=== PATIENT | female | born 2000 | race Caucasian/White ===

== ENCOUNTER 2025-05-23 20:38 | Emergency (ER) | payer MEDICAID ==
[~2025-05-23] VITALS: Ht 160 cm; Wt 73.1 kg
[2025-05-23 20:48] VITALS: TEMP 98.5
--- NOTE | 2025-05-24 01:19 | Physician Documentation ---
History of Present Illness ~ Chief Complaint: Vaginal Bleeding Stated Complaint: COMPLICATIONS Time Seen by MD: 01:15 OK to notify your PCP?: Yes Source: patient, RN/MD, RN notes reviewed, old records Mode of Arrival: POV Exam Limitations: no limitations HPI 24 year old female presents to the emergency department for complaints of complications that began today at 1800. Patient states that she began bleeding with heavy cramping. Since her symptoms began she has gone through three pads. She notes that upon her arrival she noticed a gush into her pad. She also has been having intense back pain that she describes as back labor. She states that she is . Medication Reconciliation Allergies: Coded Allergies: No Known Allergies (Unverified , 05/23/25) Past Medical History Past Medical History: No Pertinent History Past Surgical History: Smoking Status: Never smoker Alcohol Use: None Drug Use: none Review of Systems All Other Systems at this time: Reviewed and Negative ROS As stated above in the HPI, otherwise all systems are reviewed and negative. Physical Exam Vital Signs: RN Vital Signs have been reviewed: Yes, Temperature: 98.5, Source: Temporal, Heart Rate: 86, Respiratory Rate: 16, BP: 111/68, Pulse Oximetry: 100, Weight: 73.100 Oxygen Flow Rate: 0 Pulse Oximetry Reflects: adequate oxygenation Physical Exam General: The patient is well developed, well nourished, nontoxic appearing and is in no acute distress. Skin: [place], warm and dry with no rashes. HEENT: Head was normocephalic and atraumatic. Eyes - pupils equal, round, reactive to light and accommodation. Extraocular movements were intact. Conjunctivae were nonicteric. Ears - bilateral tympanic membranes were normal. The mouth and oropharynx were clear with moist mucous membranes. There were no pharyngeal exudates or erythema. Neck: Supple and nontender. There was no jugular venous distention, lymphadenopathy, thyromegaly or masses. Chest: Clear to auscultation bilaterally without wheezes, rales or rhonchi. No accessory muscle use. No dullness to percussion. Heart: Rate regular and rhythmic. S1, S2. No murmurs. Palpation of the chest wall was normal. No rubs or thrills. Abdomen: Soft, nontender and nondistended. Increased bowel sounds. No guarding or rebound. No hepatosplenomegaly or palpable masses. Extremities: No cyanosis, clubbing or edema. The patient moves all extremities. Pulses were equal and symmetric. Neurologic: Cranial nerves II-XII were intact. Sensation was intact to light touch throughout. Motor strength was 5/5 in all four extremities. Deep tendon reflexes were intact in both upper and lower extremities. Psychologic: The patient was oriented to person, place and time. The patient demonstrated appropriate judgement and insight. Vaginal exam differed. Progress Results/Orders Reviewed/noted all lab results: Yes Results/Orders Orders - VICK CARTER MD US OB (05/24/25 01:17) Completed Orders - VICK CARTER MD Cbc/Diff (05/24/25 01:16) Hcg Serum Qt (05/24/25 01:16) BMP (05/24/25 01:16) US OB (05/24/25 01:17) Abo/Rh (05/24/25 01:18) Naproxen Tablet (Naprosyn Tablet) (05/24/25 01:30) Hydrocodone/Apap 10/325 ([place] 10/325mg (05/24/25 01:30) Medications Received in ER Medications (Trade) Dose Ordered Sig/Sophia Route PRN Reason Start Time Stop Time Status Last Admin Dose Admin (Naprosyn tablet) 500 mg ONCE ONCE PO 05/24/25 01:30 05/24/25 01:31 DC 05/24/25 01:36 500 MG ([place] 10/325mg tab) 1 tab ONCE ONCE PO 05/24/25 01:30 05/24/25 01:31 DC 05/24/25 01:36 1 TAB Vital Signs 05/23/25 05/23/25 05/24/25 05/24/25 20:48 23:27 00:30 00:32 Temp 98.5 Pulse 91 87 86 Resp 16 16 16 B/P (MAP) 111/69 111/72 (85) 111/68 (82) Pulse Ox 97 97 100 O2 Flow Rate 0 0 05/24/25 05/24/25 01:30 03:06 Pulse 94 78 Resp 16 16 B/P (MAP) 118/73 (88) 122/98 Pulse Ox 99 99 Laboratory Tests Test 05/24/25 01:31 White Blood Count 8.2 Red Blood Count 3.60 L Hemoglobin 10.7 L Hematocrit 30.9 L Mean Corpuscular Volume 85.8 Mean Corpuscular Hemoglobin 29.8 Mean Corpuscular Hemoglobin Concent 34.7 Red Cell Distribution Width 12.3 Platelet Count 228 Mean Platelet Volume 8.4 Neutrophils (%) (Auto) 68.3 Lymphocytes (%) (Auto) 24.3 Monocytes (%) (Auto) 5.7 Eosinophils (%) (Auto) 0.9 Basophils (%) (Auto) 0.8 Neutrophils # (Auto) 5.6 Lymphocytes # (Auto) 2.0 Monocytes # (Auto) 0.5 Eosinophils # (Auto) 0.1 Basophils # (Auto) 0.1 CBC Comment Sodium Level 135 Potassium Level 3.4 L Chloride Level 103 Carbon Dioxide Level 23.8 L Anion Gap 8 Blood Urea Nitrogen 8 Creatinine 0.68 Estimated GFR/1.73 m2 > 90 BUN/Creatinine Ratio 11.8 Glucose Level 123 H Calcium Level 8.7 Albumin 3.1 L HCG Beta Subunit 45481 Chemistry Comments Re-Evaluation Re-Evaluation : Re-Evaluation: Unchanged Progress Patient was seen and examined. Patient is given reassurance. Patient is saw that she had some large clots and funny looking material soaking multiple pads. She states she has never had such significant pain in the past before. She received some laboratory work including typed and screened. She was given naproxen and [place] for pain. Patient's laboratory work showed slight anemia with a hemoglobin 10 hematocrit of 30.9. [place] [address]. Chemistries are within normal limits with slightly low CO2 at 23.8 and potassium at 3.4. Ultrasound showed unremarkable pelvic ultrasound with no identifiable intrauterine gestation or gestational sac who has a simple right ovarian cyst most likely related to a complete . Patient was encouraged to follow up in 48 hours for rechecking her beta hCG if she has a increasing bleeding or concerns to return to the ER. EKG/XRAY/CT/US/VASC/MRI Ultrasound : Impression INDICATION: vag bleeding TECHNIQUE: Multiple real-time grayscale transabdominal sonographic images along with color and duplex Doppler of the uterus and ovaries were obtained. COMPARISON: None FINDINGS: The uterus measures 9.7 x 7.0 x 5.3 cm. No identifiable intrauterine gestation or gestational sac. No evidence of pelvic cul-de-sac free fluid. Right ovary measures 3.4 by 2.2 x 1.9 cm with normal Doppler color flow. Anechoic cystic structure measures 1.8 x 1.4 x 1.3 cm. Left ovary measures 2.2 x 2.0 x 1.4 cm with normal Doppler color flow. IMPRESSION: 1. Grossly unremarkable pelvic ultrasound. No identifiable intrauterine gestation or gestational sac at this time. 2. Simple appearing right ovarian cyst. Electronically Signed by:MARVIN FLORES MD Date & Time: 05/24/25344 Dictated by: MARVIN FLORES MD Dictation date and time: 05/24/25344 Medical Decision Making Additional info obtained from: old records Genital Diff Dx:Considerations: Include: -Complete, - Incomplete, -Inevitable, Ablortion-Missed, -Threatened, Abruptio placentae, Blood loss anemia, Intrauterine , Placenta previa, , UTI Departure Time of Disposition: 02:50 Disposition: 01 HOME / SELF CARE / HOMELESS Impression: Primary Impression: Complete Condition: Stable Discharge Instructions: Medication , Medication , Care After Additional Instructions: Patient is to follow up with gynecology in 48 hours. HCg is 45,576, you are to be retested in 48 hours. Your blood type is O+. Referrals: NO PRIMARY CARE PROVIDER (PCP) Education Educated: Patient, Family Educated regarding: diagnosis, treatment, prognosis, need for follow up Signature Scribe Signature: Scribed for Vick Carter MD by Alison De La Torre . 05/24/25 01:35 Attestation: The note accurately reflects work and decisions made by me.Vick Carter MD 05/24/25 01:19 VICK CARTER MD May 24, 2025 01:19 ALISON PERKINS May 24, 2025 01:35
[2025-05-24] MEDS: HYDROcodone/acetaminophen 10/325mg tab PO ONE (01:36)
[2025-05-24 02:13] LABS: MEAN PLATELET VOLUME 8.4 FL (7.4-10.4); RED CELL DISTRIBUTION WIDTH 12.3 % (11.5-14.5)
[2025-05-24 02:29] LABS: CREATININE 0.68 MG/DL (0.40-0.90); TOTAL CARBON DIOXIDE 23.8 MMOL/L (24-32); eCRCL 105 ML/MIN; eGFR > 90 ML/MIN
[2025-05-24 03:06] VITALS: BP 122/98; PULSE 78; RESP 16; O2SAT 99
--- NOTE | 2025-05-24 03:48 | RADIOLOGY REPORT ---
INDICATION: vag bleeding TECHNIQUE: Multiple real-time grayscale transabdominal sonographic images along with color and duplex Doppler of the uterus and ovaries were obtained. COMPARISON: None FINDINGS: The uterus measures 9.7 x 7.0 x 5.3 cm. No identifiable intrauterine gestation or gestation al sac. No evidence of pelvic cul-de-sac free fluid. Right ovary measures 3.4 by 2.2 x 1.9 cm with normal Doppler color flow. Anechoic cystic structure me asures 1.8 x 1.4 x 1.3 cm. Left ovary measures 2.2 x 2.0 x 1.4 cm with normal Doppler color flow. IMPRESSION: 1. Grossly unremarkable pelvic ultrasound. No identifiable intrauterine gestation or gestational sac at this time. 2. Simple appearing right ovarian cyst.
== END 2025-05-24 03:09 | disposition home or self-care (01) ==
LOC: ER 20:39
DX: O03.9 Complete or unspecified spontaneous abortion without complication (principal)
CPT/HCPCS: 36415; 76801; 76817; 80048; 84702; 85025; 86900; 86901; 93976; 99285